=== PATIENT | male | born 1935 | race Caucasian/White ===

== ENCOUNTER 2021-08-21 12:16 | Emergency (ER) | payer MEDICARE, OTHER ==
--- NOTE | 2021-08-21 12:20 | ED Fall/Injury ---
General Stated Complaint: FALL History of Present Illness Date Seen by Provider: Aug 21, 2021 Time Seen by Provider: 12:20 Initial Comments 85-year-old male presents following a fall. Patient fell last night in the bathtub. He is not sure if he blacked out. Patient presents today because he "has a headache" and is maybe little bit more weak than normal. 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 Patient took some "aspirin this morning" for the headache he denies any nausea, vomiting or focal deficit. Allergies and Home Medications Allergies Coded Allergies: No Known Drug Allergies (Unverified , 08/21/21) Patient Home Medication List Home Medication List Reviewed: Yes Review of Systems Review of Systems Constitutional: see HPI Eyes: No Symptoms Reported Ears, Nose, Mouth, Throat: no symptoms reported Respiratory: no symptoms reported Cardiovascular: no symptoms reported Genitourinary: no symptoms reported Musculoskeletal: no symptoms reported Skin: no symptoms reported Psychiatric/Neurological: Headache Physical Exam Vital Signs Vital Signs - First Documented 08/21/21 12:16 Temp 36.4 Pulse 78 Resp 18 B/P (MAP) 180/85 (116) Pulse Ox 95 O2 Delivery Room Air Capillary Refill : Height, Weight, BMI Height: '" Weight: lbs. oz. kg; BMI Method: General Appearance: WD/WN, no apparent distress Neck: full range of motion, supple Cardiovascular: normal peripheral pulses Respiratory: chest non-tender, lungs clear Gastrointestinal: non tender, soft Extremities: normal capillary refill Neurologic/Psychiatric: alert, normal mood/affect, oriented x 3 Skin: normal color, warm/dry Progress/Results/Core Measures Results/Orders Lab Results Laboratory Tests Test 08/21/21 12:24 Range/Units White Blood Count 8.7 4.3-11.0 10^3/uL Red Blood Count 3.97 L 4.30-5.52 10^6/uL Hemoglobin 12.1 L 13.3-17.7 g/dL Hematocrit 36 L 40-54 % Mean Corpuscular Volume 91 80-99 fL Mean Corpuscular Hemoglobin 31 25-34 pg Mean Corpuscular Hemoglobin Concent 34 32-36 g/dL Red Cell Distribution Width 13.8 10.0-14.5 % Platelet Count 218 130-400 10^3/uL Mean Platelet Volume 8.4 L 9.0-12.2 fL Immature Granulocyte % (Auto) 0 % Neutrophils (%) (Auto) 77 H 42-75 % Lymphocytes (%) (Auto) 13 12-44 % Monocytes (%) (Auto) 8 0-12 % Eosinophils (%) (Auto) 2 0-10 % Basophils (%) (Auto) 1 0-10 % Neutrophils # (Auto) 6.7 1.8-7.8 10^3/uL Lymphocytes # (Auto) 1.1 1.0-4.0 10^3/uL Monocytes # (Auto) 0.7 0.0-1.0 10^3/uL Eosinophils # (Auto) 0.2 0.0-0.3 10^3/uL Basophils # (Auto) 0.0 0.0-0.1 10^3/uL Immature Granulocyte # (Auto) 0.0 0.0-0.1 10^3/uL Sodium Level 142 135-145 MMOL/L Potassium Level 3.7 3.6-5.0 MMOL/L Chloride Level 108 H 98-107 MMOL/L Carbon Dioxide Level 23 21-32 MMOL/L Anion Gap 11 5-14 MMOL/L Blood Urea Nitrogen 10 7-18 MG/DL Creatinine 1.26 0.60-1.30 MG/DL Estimat Glomerular Filtration Rate 56 BUN/Creatinine Ratio 8 Glucose Level 90 70-105 MG/DL Calcium Level 8.7 8.5-10.1 MG/DL Corrected Calcium 8.5 8.5-10.1 MG/DL Total Bilirubin 0.6 0.1-1.0 MG/DL Aspartate Amino Transf (AST/SGOT) 19 5-34 U/L Alanine Aminotransferase (ALT/SGPT) < 5 0-55 U/L Alkaline Phosphatase 106 40-136 U/L Total Protein 7.2 6.4-8.2 GM/DL Albumin 4.2 3.2-4.5 GM/DL My Orders Orders - CHARU BELLVOR L DO Ct Head/Cervical Spine Wo (08/21/21 12:20) Cbc With Automated Diff (08/21/21 12:20) Comprehensive Metabolic Panel (08/21/21 12:20) Ua Culture If Indicated (08/21/21 12:20) Ekg Tracing (08/21/21 12:20) Monitor-Rhythm Ecg Trace Only (08/21/21 12:20) Chest 1 View Ap/Pa Only (08/21/21 12:20) Ketorolac Injection (Toradol Injection) (08/21/21 13:17) Vital Signs/I&O 08/21/21 08/21/21 12:16 14:21 Temp 36.4 36.4 Pulse 78 75 Resp 18 18 B/P (MAP) 180/85 (116) 175/79 Pulse Ox 95 96 O2 Delivery Room Air Room Air Progress Progress Note : Progress Note Patient with negative CT head and cervical spine. I suspect he passed a little bit of a mild concussion. Patient's lab do not show any acute findings. Patient with negative EKG. Patient will get some Toradol IV here in the ER. He can use Tylenol or ibuprofen as needed for pain at home. Patient stable and discharged home Initial ECG Impression Date: Aug 21, 2021 Initial ECG Impression Time: 12:54 Initial ECG Rate: 73 Initial ECG Rhythm: Normal Sinus Initial ECG Intervals: Normal Initial ECG Impression: Normal Diagnostic Imaging Diagonstic Imaging: CT Plain Films/CT/US/NM/MRI: head Comments Date of Exam:08/21/21 CT HEAD/CERVICAL SPINE WO PROCEDURE: CT head and CT cervical spine without contrast. TECHNIQUE: Multiple contiguous axial images were obtained through the brain and cervical spine without the use of intravenous contrast. Sagittal and coronal reformations through the cervical spine were then performed. Auto Exposure Controls were utilized during the CT exam to meet ALARA standards for radiation dose reduction. INDICATION: Fall, syncope, head and neck injury. COMPARISON: None. FINDINGS: CT HEAD: The ventricles and cortical sulci are prominent, but appear congruent and likely due to generalized parenchymal volume loss. There is no midline shift or mass effect. No acute intracranial hemorrhage is seen. There is no CT evidence of acute territorial ischemia. The calvarium appears intact. Visualized paranasal sinuses are clear. There is a prominent right kitty bullosa. CERVICAL SPINE: Alignment of the cervical spine demonstrates minimal anterolisthesis at C4-C5. There is bony bridging across C3-C4. There is severe degenerative change at C5-C6 and C6-C7. There is facet arthropathy in the upper cervical spine bilaterally. Vertebral body heights are generally preserved. No acute fracture is seen. No bony fragments or hyperdense fluid collections are seen in the spinal canal. Soft tissues about the cervical spine demonstrate no acute abnormality. IMPRESSION: 1. No acute intracranial hemorrhage or calvarium fracture. 2. Degenerative changes in the cervical spine with no acute fracture seen. Diagonstic Imaging: Xray Plain Films/CT/US/NM/MRI: chest Comments CHEST 1 VIEW AP/PA ONLY HISTORY: Fall, syncope TECHNIQUE: Frontal view of the chest COMPARISON: None FINDINGS: There is abnormal opacity at the right lung base. There is a small right pleural effusion with right basilar airspace opacity. The left lung is clear. The heart is upper normal in size. There is no pneumothorax. There is no pneumothorax. IMPRESSION: 1. Small right pleural effusion with associated airspace opacity. Reviewed: Reviewed Night [facility] Study Departure Impression Primary Impression: Fall Qualified Codes: W19.XXXA - Unspecified fall, initial encounter Additional Impression: Minor head injury Qualified Codes: S09.90XA - Unspecified injury of head, initial encounter Disposition: 01 HOME, SELF-CARE Condition: Stable Departure-Patient Inst. Patient Instructions: Concussion, Adult (DC), Minor Head Injury (DC) Add. Discharge Instructions: Tylenol or ibuprofen as needed for pain Follow-up with your primary care provider next week if symptoms are not improving SAIDA BELL DO Aug 21, 2021 12:20
[2021-08-21 12:25] LABS: BASOPHILS % (AUTO) 1 % (0-10); EOSINOPHILS # (AUTO) 0.2 10^3/uL (0.0-0.3); EOSINOPHILS % (AUTO) 2 % (0-10); HEMATOCRIT 36 % (40-54); HEMOGLOBIN 12.1 g/dL (13.3-17.7); LYMPHOCYTES # (AUTO) 1.1 10^3/uL (1.0-4.0); LYMPHOCYTES % (AUTO) 13 % (12-44); MEAN CORPUSCULAR HEMOGLOBIN 31 pg (25-34); MEAN CORPUSCULAR HGB CONC 34 g/dL (32-36); MEAN CORPUSCULAR VOLUME 91 fL (80-99); MEAN PLATELET VOLUME 8.4 fL (9.0-12.2); MONOCYTES # (AUTO) 0.7 10^3/uL (0.0-1.0); MONOCYTES % (AUTO) 8 % (0-12); NEUTROPHILS # (AUTO) 6.7 10^3/uL (1.8-7.8); NEUTROPHILS % (AUTO) 77 % (42-75); PLATELET COUNT 218 10^3/uL (130-400); WHITE BLOOD COUNT 8.7 10^3/uL (4.3-11.0)
[2021-08-21 12:44] LABS: ALANINE AMINOTRANSFERASE < 5 U/L (0-55); ALKALINE PHOSPHATASE 106 U/L (40-136); BILIRUBIN,TOTAL 0.6 MG/DL (0.1-1.0); BUN/CREATININE RATIO 8; CALCIUM 8.7 MG/DL (8.5-10.1); CARBON DIOXIDE 23 MMOL/L (21-32); CHLORIDE 108 MMOL/L (98-107); CREATININE SERUM 1.26 MG/DL (0.60-1.30); GFR ESTIMATED 56; GLUCOSE 90 MG/DL (70-105); POTASSIUM 3.7 MMOL/L (3.6-5.0); SODIUM 142 MMOL/L (135-145)
[2021-08-21 12:45] LABS: ALBUMIN 4.2 GM/DL (3.2-4.5); TOTAL PROTEIN 7.2 GM/DL (6.4-8.2)
--- NOTE | 2021-08-21 12:57 | Diagnostic Imaging Report ---
PROCEDURE: CT head and CT cervical spine without contrast. TECHNIQUE: Multiple contiguous axial images were obtained through the brain and cervical spine without the use of intravenous contrast. Sagittal and coronal reformations through the cervical spine were then performed. Auto Exposure Controls were utilized during the CT exam to meet ALARA standards for radiation dose reduction. INDICATION: Fall, syncope, head and neck injury. COMPARISON: None. FINDINGS: CT HEAD: The ventricles and cortical sulci are prominent, but appear congruent and likely due to generalized parenchymal volume loss. There is no midline shift or mass effect. No acute intracranial hemorrhage is seen. There is no CT evidence of acute territorial ischemia. The calvarium appears intact. Visualized paranasal sinuses are clear. There is a prominent right kitty bullosa. CERVICAL SPINE: Alignment of the cervical spine demonstrates minimal anterolisthesis at C4-C5. There is bony bridging across C3-C4. There is severe degenerative change at C5-C6 and C6-C7. There is facet arthropathy in the upper cervical spine bilaterally. Vertebral body heights are generally preserved. No acute fracture is seen. No bony fragments or hyperdense fluid collections are seen in the spinal canal. Soft tissues about the cervical spine demonstrate no acute abnormality. IMPRESSION: 1. No acute intracranial hemorrhage or calvarium fracture. 2. Degenerative changes in the cervical spine with no acute fracture seen. Dictated by: Dictated on workstation # [id number]
--- NOTE | 2021-08-21 12:57 | Diagnostic Imaging Report ---
HISTORY: Fall, syncope TECHNIQUE: Frontal view of the chest COMPARISON: None FINDINGS: There is abnormal opacity at the right lung base. There is a small right pleural effusion with right basilar airspace opacity. The left lung is clear. The heart is upper normal in size. There is no pneumothorax. There is no pneumothorax. IMPRESSION: 1. Small right pleural effusion with associated airspace opacity. Dictated by: Dictated on workstation # [id number]
[2021-08-21] MEDS ORDERED: KETOROLAC 30 MG/ML VIAL IVP STA (13:17)
[2021-08-21 14:21] VITALS: BP 175/79
== END 2021-08-21 14:18 | disposition home or self-care (01) ==
LOC: ER FS 12:18
DX: S09.90XA Unspecified injury of head, initial encounter (principal); Z86.73 Personal history of transient ischemic attack (TIA), and cerebral infarction without residual deficits; Z79.82 Long term (current) use of aspirin; W18.2XXA Fall in (into) shower or empty bathtub, initial encounter
CPT/HCPCS: 36415; 70450; 71045; 72125; 80053; 85025; 93005; 93041

== ENCOUNTER 2021-12-03 19:02 | Emergency (ER) | payer MEDICARE ==
--- NOTE | 2021-12-03 19:06 | ED General ---
General Stated Complaint: CP History of Present Illness Date Seen by Provider: Dec 03, 2021 Time Seen by Provider: 19:01 Initial Comments 86-year-old male with PMH of Alzheimer's dementia/Parkinson's, is sent here via EMS from [facility] with c/o brief intermittent chest pain which occurred in the morning. As per paper report, staff concerned since pt told them he will not make it through the weekend. EMS reports no chest pain at time on scene. In ER pt denies any chest pain, and states it lasted only a few seconds and went away. Denies fever, cough, SOB,palpations, diarrhea, dysuria, headache. Allergies and Home Medications Allergies Coded Allergies: No Known Drug Allergies (Unverified , 08/21/21) Patient Home Medication List Home Medication List Reviewed: Yes Review of Systems Review of Systems Constitutional: no symptoms reported EENTM: no symptoms reported Respiratory: no symptoms reported Cardiovascular: chest pain Gastrointestinal: no symptoms reported Genitourinary: no symptoms reported Musculoskeletal: no symptoms reported Skin: no symptoms reported Psychiatric/Neurological: No Symptoms Reported Hematologic/Lymphatic: No Symptoms Reported Immunological/Allergic: no symptoms reported Past Gzhccra-Lfeaby-Gtweij Hx Immunizations Up To Date First/Initial COVID19 Vaccinat: Unknown Past Medical History Surgery/Hospitalization HX: Parkinson's, BPH, Dementia, HTN, CVA Physical Exam Vital Signs Vital Signs - First Documented 12/03/21 19:02 Temp 36.9 Pulse 88 Resp 18 B/P (MAP) 154/79 (104) Pulse Ox 94 O2 Delivery Room Air Capillary Refill : Height, Weight, BMI Height: '" Weight: lbs. oz. kg; BMI Method: General Appearance: No Apparent Distress, Obese HEENT: PERRL/EOMI, Pharynx Normal Neck: Full Range of Motion, Normal Inspection, Non Tender, Supple Respiratory: Chest Non Tender, Lungs Clear, Normal Breath Sounds Cardiovascular: Regular Rate, Rhythm, No Edema Gastrointestinal: Normal Bowel Sounds, Non Tender, Soft Back: Normal Inspection, No CVA Tenderness, No Vertebral Tenderness Neurologic/Psychiatric: Alert, Oriented x3, Normal Mood/Affect Skin: Normal Color Progress/Results/Core Measures Suspected Sepsis SIRS Temperature: Pulse: Respiratory Rate: Laboratory Tests 12/03/21 19:06: White Blood Count 9.2 Blood Pressure / Mean: Laboratory Tests 12/03/21 19:06: Creatinine 1.31H, INR Comment 1.0, Platelet Count 336, Total Bilirubin 0.3 Results/Orders Lab Results Laboratory Tests Test 12/03/21 19:06 12/03/21 20:56 Range/Units White Blood Count 9.2 4.3-11.0 10^3/uL Red Blood Count 4.22 L 4.30-5.52 10^6/uL Hemoglobin 12.6 L 13.3-17.7 g/dL Hematocrit 38 L 40-54 % Mean Corpuscular Volume 90 80-99 fL Mean Corpuscular Hemoglobin 30 25-34 pg Mean Corpuscular Hemoglobin Concent 33 32-36 g/dL Red Cell Distribution Width 14.2 10.0-14.5 % Platelet Count 336 130-400 10^3/uL Mean Platelet Volume 8.3 L 9.0-12.2 fL Immature Granulocyte % (Auto) 0 % Neutrophils (%) (Auto) 75 42-75 % Lymphocytes (%) (Auto) 16 12-44 % Monocytes (%) (Auto) 5 0-12 % Eosinophils (%) (Auto) 3 0-10 % Basophils (%) (Auto) 1 0-10 % Neutrophils # (Auto) 6.9 1.8-7.8 10^3/uL Lymphocytes # (Auto) 1.5 1.0-4.0 10^3/uL Monocytes # (Auto) 0.5 0.0-1.0 10^3/uL Eosinophils # (Auto) 0.3 0.0-0.3 10^3/uL Basophils # (Auto) 0.1 0.0-0.1 10^3/uL Immature Granulocyte # (Auto) 0.0 0.0-0.1 10^3/uL Prothrombin Time 13.5 12.2-14.7 SEC INR Comment 1.0 0.8-1.4 Activated Partial Thromboplast Time 28 24-35 SEC D-Dimer 1.11 H 0.00-0.49 UG/ML Sodium Level 140 135-145 MMOL/L Potassium Level 4.2 3.6-5.0 MMOL/L Chloride Level 103 98-107 MMOL/L Carbon Dioxide Level 23 21-32 MMOL/L Anion Gap 14 5-14 MMOL/L Blood Urea Nitrogen 16 7-18 MG/DL Creatinine 1.31 H 0.60-1.30 MG/DL Estimat Glomerular Filtration Rate 53 BUN/Creatinine Ratio 12 Glucose Level 102 70-105 MG/DL Calcium Level 9.0 8.5-10.1 MG/DL Corrected Calcium 8.9 8.5-10.1 MG/DL Magnesium Level 2.1 1.6-2.4 MG/DL Total Bilirubin 0.3 0.1-1.0 MG/DL Aspartate Amino Transf (AST/SGOT) 15 5-34 U/L Alanine Aminotransferase (ALT/SGPT) 6 0-55 U/L Alkaline Phosphatase 118 40-136 U/L Troponin I < 0.30 <0.30 NG/ML Pro-B-Type Natriuretic Peptide 56.3 <75.0 PG/ML Total Protein 7.7 6.4-8.2 GM/DL Albumin 4.1 3.2-4.5 GM/DL Lipase 35 8-78 U/L Urine Color YELLOW Urine Clarity CLEAR Urine pH 6.0 5-9 Urine Specific [place] 1.010 L 1.016-1.022 Urine Protein NEGATIVE NEGATIVE Urine Glucose (UA) NEGATIVE NEGATIVE Urine Ketones NEGATIVE NEGATIVE Urine Nitrite NEGATIVE NEGATIVE Urine Bilirubin NEGATIVE NEGATIVE Urine Urobilinogen 0.2 < = 1.0 MG/DL Urine Leukocyte Esterase NEGATIVE NEGATIVE Urine RBC (Auto) NEGATIVE NEGATIVE Urine RBC 2-5 H /HPF Urine WBC NONE /HPF Urine Squamous Epithelial Cells 2-5 /HPF Urine Crystals NONE /LPF Urine Bacteria NEGATIVE /HPF Urine Casts NONE /LPF Urine Mucus NEGATIVE /LPF Urine Culture Indicated NO My Orders Orders - JANIA MENDOSA MD Cbc With Automated Diff (12/03/21 19:07) Magnesium (12/03/21 19:07) Chest 1 View Ap/Pa Only (12/03/21 19:07) Ekg Tracing (12/03/21 19:07) Comprehensive Metabolic Panel (12/03/21 19:07) Protime With Inr (12/03/21 19:07) Partial Thromboplastin Time (12/03/21 19:07) O2 (12/03/21 19:07) Monitor-Rhythm Ecg Trace Only (12/03/21 19:07) Aspirin Chewable Tablet (Baby Aspirin Ch (12/03/21 19:15) Ed Iv/Invasive Line Start (12/03/21 19:07) Lipase (12/03/21 19:07) Fibrin Degradation Products (12/03/21 19:07) Troponin I Fs (12/03/21 19:07) Probnp Fs (12/03/21 19:07) Ua Culture If Indicated (12/03/21 19:07) Aspirin Chewable Tablet (Baby Aspirin Ch (12/03/21 19:30) Ct Angio Chest W (12/03/21 19:52) Iohexol Injection (Omnipaque 350 Mg/Ml 1 (12/03/21 20:00) Received Contrast (Hold Metformin- Contr (12/03/21 20:00) Ns (Ivpb) (Sodium Chloride 0.9% Ivpb Bag (12/03/21 20:00) Straight Cath (Urinary) (12/03/21 20:48) Medications Given in ED Current Medications Medications Dose Ordered Sig/Kami Route Start Time Stop Time Status Last Admin Dose Admin Aspirin 243 mg ONCE ONCE PO 12/03/21 19:30 12/03/21 19:31 DC 12/03/21 19:29 243 MG Iohexol 125 ml ONCE ONCE IV 12/03/21 20:00 12/03/21 20:01 DC 12/03/21 20:12 125 ML Sodium Chloride 100 ml ONCE ONCE IV 12/03/21 20:00 12/03/21 20:01 DC 12/03/21 20:12 100 ML Vital Signs/I&O 12/03/21 19:02 Temp 36.9 Pulse 88 Resp 18 B/P (MAP) 154/79 (104) Pulse Ox 94 O2 Delivery Room Air Capillary Refill : Progress Note : Progress Note 1. ACS RULE OUT: - CXR: unremarkable - EKG/ Troponin: non-ischemic - UA normal - Labs unremarkable - ASA 243mg STAT; pt took one baby ASA earlier today - No pain in the ER - Follow up with PCP and cardiology within 5to 7 days -The patient was seen in the ED, and treated appropriately to presentation at a specific point in time. Patient is informed that there is a possibility that disease and illness can evolve and change in acuity rapidly or slowly after patient is discharged from the ER. Precautionary advice given to the patient for immediate return to ER if symptoms worsen or do not resolve, and to seek emergency care sooner rather than later. Pt also advised on the importance of PCP follow up and compliance with management and follow up plan with PCP and/or specialist, as this is part of the management plan. Pt verbally expressed understanding. 2. ELEVATED D-DIMER: - D-dimer is 1.11 - CTA CHEST: no PE, shows gallstones, but it is small and likely chronic and pt denies RUQ pain. Diagnostic Imaging Diagonstic Imaging: Xray, CT Plain Films/CT/US/NM/MRI: chest Comments [facility] [place], [place] NAME: MANUEL CALERO [facility] REC#: [id number] PT STATUS: REG ER : 1935 PHYSICIAN: JANIA MENDOSA MD ADMIT DATE: 12/03/21/ER FS Signed Date of Exam:12/03/21 CT ANGIO CHEST W PROCEDURE: CT angiography of the chest with contrast. TECHNIQUE: Multiple contiguous axial images were obtained through the chest after uneventful bolus administration of intravenous contrast. 3D reconstructed CTA MIP acquisitions were also performed. Auto Exposure Controls were utilized during the CT exam to meet ALARA standards for radiation dose reduction. INDICATION: Elevated D-dimer, chest pain. Lungs are clear. There is mild aortic atherosclerosis but no aneurysm or dissection. There are no pulmonary emboli. There is coronary atherosclerosis. There are no effusions or pneumothoraces. There is no hilar or mediastinal lymphadenopathy. There are some small calculi in the gallbladder. IMPRESSION: Cholecystolithiasis. No acute abnormality is seen in the chest. Dictated by: Dictated on workstation # [id number] Dict: 12/03/[id number] Trans: 12/03/212103 [facility] [id number] Interpreted by: DOMINIC LUNDY MD Electronically signed by: DOMINIC LUNDY MD 12/03/212103 [facility] [place], [place] NAME: MANUEL CALERO [facility] REC#: [id number] PT STATUS: REG ER : 1935 PHYSICIAN: JANIA MENDOSA MD ADMIT DATE: 12/03/21/ER FS Signed Date of Exam:12/03/21 CHEST 1 VIEW AP/PA ONLY INDICATION: Chest pain. EXAMINATION: Portable chest at 7:17 PM. Heart size and pulmonary vascularity are normal. Lungs are clear. There are no effusions or pneumothoraces. IMPRESSION: No acute abnormalities in the chest. Dictated by: Dictated on workstation # [id number] Dict: 12/03/211922 Trans: 12/03/211935 PJE [id number] Interpreted by: DOMINIC LUNDY MD Electronically signed by: DOMINIC LUNDY MD 12/03/211935 Departure Impression Primary Impression: Ruled out for myocardial infarction Disposition: HOME, SELF-CARE Condition: Improved Departure-Patient Inst. Referrals: RORY SMITH MD (PCP/Family) Primary Care Physician Patient Instructions: Heart Healthy Diet, Chest Pain (DC), Pleuritic Chest Pain (DC) Add. Discharge Instructions: - Follow up with PCP and cardiology within 5 to 7 days - Return to ER if chest pain resumes JANIA MENDOSA MD Dec 03, 2021 19:06
[2021-12-03 19:12] LABS: BASOPHILS # (AUTO) 0.1 10^3/uL (0.0-0.1); BASOPHILS % (AUTO) 1 % (0-10); EOSINOPHILS # (AUTO) 0.3 10^3/uL (0.0-0.3); EOSINOPHILS % (AUTO) 3 % (0-10); HEMATOCRIT 38 % (40-54); HEMOGLOBIN 12.6 g/dL (13.3-17.7); LYMPHOCYTES # (AUTO) 1.5 10^3/uL (1.0-4.0); LYMPHOCYTES % (AUTO) 16 % (12-44); MEAN CORPUSCULAR HEMOGLOBIN 30 pg (25-34); MEAN CORPUSCULAR HGB CONC 33 g/dL (32-36); MEAN CORPUSCULAR VOLUME 90 fL (80-99); MEAN PLATELET VOLUME 8.3 fL (9.0-12.2); MONOCYTES # (AUTO) 0.5 10^3/uL (0.0-1.0); MONOCYTES % (AUTO) 5 % (0-12); NEUTROPHILS # (AUTO) 6.9 10^3/uL (1.8-7.8); NEUTROPHILS % (AUTO) 75 % (42-75); PLATELET COUNT 336 10^3/uL (130-400); WHITE BLOOD COUNT 9.2 10^3/uL (4.3-11.0)
[2021-12-03] MEDS ORDERED: ASPIRIN 81 MG CHEW (CHILDREN'S ASA) PO ONE ×2 (19:15→19:30)
[2021-12-03 19:18] LABS: PROTHROMBIN TIME PATIENT 13.5 SEC (12.2-14.7)
--- NOTE | 2021-12-03 19:26 | Diagnostic Imaging Report ---
INDICATION: Chest pain. EXAMINATION: Portable chest at 7:17 PM. Heart size and pulmonary vascularity are normal. Lungs are clear. There are no effusions or pneumothoraces. IMPRESSION: No acute abnormalities in the chest. Dictated by: Dictated on workstation # [id number]
[2021-12-03 19:29] LABS: POTASSIUM 4.2 MMOL/L (3.6-5.0)
[2021-12-03 19:30] LABS: ALBUMIN 4.1 GM/DL (3.2-4.5); BILIRUBIN,TOTAL 0.3 MG/DL (0.1-1.0); CREATININE SERUM 1.31 MG/DL (0.60-1.30); MAGNESIUM 2.1 MG/DL (1.6-2.4); TOTAL PROTEIN 7.7 GM/DL (6.4-8.2)
[2021-12-03] MEDS ORDERED: NS 100 ML (IVPB) BAG IV ONE (20:00)
[2021-12-03] MEDS ORDERED: HOLD METFORMIN - RECEIVED CONTRAST 20 ML VIAL IV SCH (20:00)
[2021-12-03] MEDS ORDERED: IOHEXOL 350 MG/ML 150 ML (OMNIPAQUE 350) VIAL IV ONE (20:00)
--- NOTE | 2021-12-03 20:48 | Diagnostic Imaging Report ---
PROCEDURE: CT angiography of the chest with contrast. TECHNIQUE: Multiple contiguous axial images were obtained through the chest after uneventful bolus administration of intravenous contrast. 3D reconstructed CTA MIP acquisitions were also performed. Auto Exposure Controls were utilized during the CT exam to meet ALARA standards for radiation dose reduction. INDICATION: Elevated D-dimer, chest pain. Lungs are clear. There is mild aortic atherosclerosis but no aneurysm or dissection. There are no pulmonary emboli. There is coronary atherosclerosis. There are no effusions or pneumothoraces. There is no hilar or mediastinal lymphadenopathy. There are some small calculi in the gallbladder. IMPRESSION: Cholecystolithiasis. No acute abnormality is seen in the chest. Dictated by: Dictated on workstation # [id number]
[2021-12-03 20:58] LABS: BILIRUBIN,URINE NEGATIVE (NEGATIVE); CLARITY,URINE CLEAR; COLOR,URINE YELLOW; GLUCOSE, URINE (UA) NEGATIVE (NEGATIVE); KETONES,URINE NEGATIVE (NEGATIVE); LEUKOCYTE ESTERASE ,URINE NEGATIVE (NEGATIVE); NITRITE,URINE NEGATIVE (NEGATIVE); PROTEIN,URINE NEGATIVE (NEGATIVE)
[2021-12-03 21:01] LABS: BACTERIA,URINE NEGATIVE /HPF
[2021-12-03 21:21] VITALS: BP 111/86
== END 2021-12-03 22:05 | disposition home or self-care (01) ==
LOC: EDUNIT# 19:02 → ER FS 19:03
DX: R07.9 Chest pain, unspecified (principal)
CPT/HCPCS: 36415; 51701; 71045; 71275; 80053; 81000; 83690; 83735; 83880; 84484; 85025; 85379; 85610; 85730; 93005; 93041; Q9967

== ENCOUNTER → 2022-08-24 | Outpatient (CLI) | payer MEDICARE, MEDICAID ==
[2022-08-24 10:42] LABS: HEMATOCRIT 38 % (40-54); HEMOGLOBIN 12.4 g/dL (13.3-17.7); MEAN CORPUSCULAR HEMOGLOBIN 30 pg (25-34); MEAN CORPUSCULAR HGB CONC 33 g/dL (32-36); MEAN CORPUSCULAR VOLUME 92 fL (80-99); MEAN PLATELET VOLUME 8.7 fL (9.0-12.2); PLATELET COUNT 234 10^3/uL (130-400); WHITE BLOOD COUNT 8.6 10^3/uL (4.3-11.0)
[2022-08-24 11:12] LABS: BILIRUBIN,TOTAL 0.7 MG/DL (0.1-1.0); CALCIUM 8.7 MG/DL (8.5-10.1); CREATININE SERUM 1.37 MG/DL (0.60-1.30); POTASSIUM 3.4 MMOL/L (3.6-5.0); TOTAL PROTEIN 7.3 GM/DL (6.4-8.2)
== END ==
PROVIDERS: ATTEND Family Medicine
DX: J18.8 Other pneumonia, unspecified organism (principal)
CPT/HCPCS: 80053; 85027

== ENCOUNTER → 2022-08-30 | Outpatient (CLI) | payer MEDICARE, MEDICAID ==
[2022-08-30 11:14] LABS: HEMOGLOBIN 12.7 g/dL (13.3-17.7); MEAN PLATELET VOLUME 8.8 fL (9.0-12.2); WHITE BLOOD COUNT 8.9 10^3/uL (4.3-11.0)
[2022-08-30 12:04] LABS: BILIRUBIN,TOTAL 0.5 MG/DL (0.1-1.0); CALCIUM 8.8 MG/DL (8.5-10.1); CREATININE SERUM 1.34 MG/DL (0.60-1.30); TOTAL PROTEIN 7.1 GM/DL (6.4-8.2)
== END ==
LOC: LAB FS 10:42
PROVIDERS: ATTEND Family Medicine
DX: I10 Essential (primary) hypertension (principal)
CPT/HCPCS: 36415; 80053; 83880; 85027

== ENCOUNTER → 2022-09-26 | Outpatient (CLI) | payer MEDICARE, MEDICAID ==
[2022-09-26 17:37] LABS: HEMATOCRIT 37 % (40-54); HEMOGLOBIN 12.1 g/dL (13.3-17.7); MEAN CORPUSCULAR HEMOGLOBIN 31 pg (25-34); MEAN CORPUSCULAR HGB CONC 33 g/dL (32-36); MEAN CORPUSCULAR VOLUME 93 fL (80-99); MEAN PLATELET VOLUME 8.9 fL (9.0-12.2); PLATELET COUNT 279 10^3/uL (130-400); WHITE BLOOD COUNT 7.2 10^3/uL (4.3-11.0)
[2022-09-26 18:02] LABS: ALBUMIN 3.9 GM/DL (3.2-4.5); BILIRUBIN,TOTAL 0.4 MG/DL (0.1-1.0); CALCIUM 8.7 MG/DL (8.5-10.1); CREATININE SERUM 1.28 MG/DL (0.60-1.30); POTASSIUM 3.7 MMOL/L (3.6-5.0); TOTAL PROTEIN 6.9 GM/DL (6.4-8.2)
== END ==
LOC: LAB FS 17:27
PROVIDERS: ATTEND Family Medicine
DX: M62.81 Muscle weakness (generalized) (principal); J18.8 Other pneumonia, unspecified organism
CPT/HCPCS: 36415; 80053; 85027

== ENCOUNTER 2023-01-08 18:38 | Emergency (ER) | payer MEDICARE, MEDICAID ==
--- NOTE | 2023-01-08 18:46 | ED General ---
General Stated Complaint: CP/SOB History of Present Illness Date Seen by Provider: Jan 08, 2023 Time Seen by Provider: 18:44 Initial Comments 87-year-old male with PMH of COPD/CKD 3/HTN/APRIL/Alzheimer's/Parkinson's, is brought in by EMS from [facility] with complaints of shortness of breath and 1 episode of chest pain at 9 AM today morning, which has resolved. Patient's nephew was visiting with patient at medical lunch and advised them to send him to the ER because he had a second episode of chest pain while his nephew was there as well which also resolved. In the ER patient denies chest pain. Patient has been having shortness of breath which began yesterday and gradually worsened, and is aggravated by moving around. In the ER patient is satting in 93 to 95% on room air. Denies active chest pain, cough, fever, lethargy, diarrhea, nausea and vomiting. Allergies and Home Medications Allergies Coded Allergies: No Known Drug Allergies (Unverified , 08/21/21) Patient Home Medication List Home Medication List Reviewed: Yes Review of Systems Review of Systems Constitutional: no symptoms reported EENTM: no symptoms reported Respiratory: see HPI, short of breath Cardiovascular: see HPI, chest pain Gastrointestinal: no symptoms reported Genitourinary: no symptoms reported Musculoskeletal: no symptoms reported Skin: no symptoms reported Psychiatric/Neurological: No Symptoms Reported Hematologic/Lymphatic: No Symptoms Reported Immunological/Allergic: no symptoms reported Past Huqwsgi-Idlfhk-Kopwqp Hx Immunizations Up To Date First/Initial COVID19 Vaccinat: Unknown Past Medical History Surgery/Hospitalization HX: Parkinson's, BPH, Dementia, HTN, CVA Physical Exam Vital Signs Vital Signs - First Documented 01/08/23 18:42 Temp 36.1 Pulse 97 Resp 17 B/P (MAP) 134/94 (107) Pulse Ox 95 O2 Delivery Room Air Capillary Refill : Height, Weight, BMI Height: '" Weight: lbs. oz. kg; BMI Method: General Appearance: No Apparent Distress, WD/WN HEENT: PERRL/EOMI, Normal ENT Inspection Neck: Full Range of Motion Respiratory: Chest Non Tender, No Accessory Muscle Use, No Respiratory Distress, Wheezing (Expiratory mild, occasional) Cardiovascular: Regular Rate, Rhythm, Other (Bilateral mild pitting edema 1+) Gastrointestinal: Normal Bowel Sounds, No Organomegaly, Non Tender, Soft Back: No CVA Tenderness Extremity: Normal Range of Motion Neurologic/Psychiatric: Alert, Oriented x3, No Motor/Sensory Deficits, Normal Mood/Affect Skin: Normal Color Focused Exam Lactate Level 01/08/23 18:41: Lactic Acid Level 2.62*H Lactic Acid Level Laboratory Tests Test 01/08/23 18:41 Lactic Acid Level 2.62 MMOL/L (0.50-2.00) *H Progress/Results/Core Measures Suspected Sepsis SIRS Temperature: Pulse: Respiratory Rate: Laboratory Tests 01/08/23 18:41: White Blood Count 5.8 Blood Pressure / Mean: 01/08/23 18:41: Lactic Acid Level 2.62*H Laboratory Tests 01/08/23 18:41: Creatinine 1.32H, INR Comment 0.9, Platelet Count 179, Total Bilirubin 0.3 Results/Orders Lab Results Laboratory Tests Test 01/08/23 18:41 01/08/23 20:25 Range/Units White Blood Count 5.8 4.3-11.0 10^3/uL Red Blood Count 4.14 L 4.30-5.52 10^6/uL Hemoglobin 12.4 L 13.3-17.7 g/dL Hematocrit 41 40-54 % Mean Corpuscular Volume 98 80-99 fL Mean Corpuscular Hemoglobin 30 25-34 pg Mean Corpuscular Hemoglobin Concent 31 L 32-36 g/dL Red Cell Distribution Width 15.4 H 10.0-14.5 % Platelet Count 179 130-400 10^3/uL Mean Platelet Volume 8.6 L 9.0-12.2 fL Immature Granulocyte % (Auto) 0 % Neutrophils (%) (Auto) 60 42-75 % Lymphocytes (%) (Auto) 25 12-44 % Monocytes (%) (Auto) 8 0-12 % Eosinophils (%) (Auto) 7 0-10 % Basophils (%) (Auto) 1 0-10 % Neutrophils # (Auto) 3.4 1.8-7.8 10^3/uL Lymphocytes # (Auto) 1.5 1.0-4.0 10^3/uL Monocytes # (Auto) 0.4 0.0-1.0 10^3/uL Eosinophils # (Auto) 0.4 H 0.0-0.3 10^3/uL Basophils # (Auto) 0.0 0.0-0.1 10^3/uL Immature Granulocyte # (Auto) 0.0 0.0-0.1 10^3/uL Prothrombin Time 12.6 12.2-14.7 SEC INR Comment 0.9 0.8-1.4 Activated Partial Thromboplast Time 28 24-35 SEC Sodium Level 138 135-145 MMOL/L Potassium Level 3.6 3.6-5.0 MMOL/L Chloride Level 103 98-107 MMOL/L Carbon Dioxide Level 23 21-32 MMOL/L Anion Gap 12 5-14 MMOL/L Blood Urea Nitrogen 13 7-18 MG/DL Creatinine 1.32 H 0.60-1.30 MG/DL Estimat Glomerular Filtration Rate 52 BUN/Creatinine Ratio 10 Glucose Level 115 H 70-105 MG/DL Lactic Acid Level 2.62 *H 0.50-2.00 MMOL/L Calcium Level 8.9 8.5-10.1 MG/DL Corrected Calcium 9.1 8.5-10.1 MG/DL Magnesium Level 2.1 1.6-2.4 MG/DL Total Bilirubin 0.3 0.1-1.0 MG/DL Aspartate Amino Transf (AST/SGOT) 33 5-34 U/L Alanine Aminotransferase (ALT/SGPT) 19 0-55 U/L Alkaline Phosphatase 125 40-136 U/L Troponin I < 0.30 <0.30 NG/ML Pro-B-Type Natriuretic Peptide 44.3 <450.0 PG/ML Total Protein 7.0 6.4-8.2 GM/DL Albumin 3.8 3.2-4.5 GM/DL Urine Color YELLOW Urine Clarity CLEAR Urine pH 5.5 5-9 Urine Specific [place] 1.020 1.016-1.022 Urine Protein NEGATIVE NEGATIVE Urine Glucose (UA) NEGATIVE NEGATIVE Urine Ketones NEGATIVE NEGATIVE Urine Nitrite NEGATIVE NEGATIVE Urine Bilirubin NEGATIVE NEGATIVE Urine Urobilinogen 0.2 < = 1.0 MG/DL Urine Leukocyte Esterase NEGATIVE NEGATIVE Urine RBC (Auto) NEGATIVE NEGATIVE Urine RBC NONE /HPF Urine WBC RARE /HPF Urine Squamous Epithelial Cells RARE /HPF Urine Crystals NONE /LPF Urine Bacteria NEGATIVE /HPF Urine Casts NONE /LPF Urine Mucus SMALL H /LPF Urine Culture Indicated NO My Orders Orders - JANIA MENDOSA MD Chest 1 View Ap/Pa Only (01/08/23 18:46) Continuous Ekg Monitoring (01/08/23 18:47) Ekg Tracing (01/08/23 18:47) Cbc With Automated Diff (01/08/23 18:47) Comprehensive Metabolic Panel (01/08/23 18:47) Lactic Acid Analyzer (01/08/23 18:47) Magnesium (01/08/23 18:47) Protime With Inr (01/08/23 18:47) Partial Thromboplastin Time (01/08/23 18:47) Ua Culture If Indicated (01/08/23 18:47) Probnp Fs (01/08/23 18:47) Troponin I Fs (01/08/23 18:47) Albuterol/Ipra Inhalation Soln (Duoneb I (01/08/23 19:00) Methylprednisolone Sod Succ (Solu-Medrol (01/08/23 18:56) Svn Small Volume Nebulizer (01/08/23 18:56) Ed Iv/Invasive Line Start (01/08/23 19:46) Ns Iv 1000 Ml (Sodium Chloride 0.9%) (01/08/23 20:00) Ns Iv 1000 Ml (Sodium Chloride 0.9%) (01/08/23 19:51) Furosemide Injection (Lasix Injection) (01/08/23 21:15) Medications Given in ED Current Medications Medications Dose Ordered Sig/Kami Route Start Time Stop Time Status Last Admin Dose Admin Albuterol/ Ipratropium 3 ml ONCE ONCE INH 01/08/23 19:00 01/08/23 19:01 DC 01/08/23 19:09 3 ML Furosemide 20 mg ONCE ONCE IVP 01/08/23 21:15 01/08/23 21:16 UNV 01/08/23 21:17 20 MG Vital Signs/I&O 01/08/23 01/08/23 18:42 19:09 Temp 36.1 Pulse 97 Resp 17 B/P (MAP) 134/94 (107) Pulse Ox 95 94 O2 Delivery Room Air Room Air Capillary Refill : Progress Note : Progress Note 1. ACS RULED OUT: - EKG: non-ischemic - Troponin undetectable 2. ACUTE COPD EXACERBATION - CXR: Cardiomegaly with mild central vascular congestion and some bibasilar atelectasis. No pleural fluid or gely consolidation. - CBC: unremarkable, normal WBC - BNP: normal - EMS gave pt ASA 324mg and a duo neb in the ambulance - Duo neb x2/ Solumedrol 125mg iv STAT - Pt's breathing issue resolved with this 3.DEHYDRATION/ JIMMY: - Elevated lactic acid: 2.62 - s. creatinine: elevated at 1.32 - NS IVF bolus STAT - Gave a small dose of Lasix, 20mg iv right before discharge to prevent fluid overload just in case. Pt's BP able to tolerate it. -Adequate hydration advised -Follow-up with PCP within the next 3 to 7 days -Advised patient to let long-term know that he has COPD since it was not on his list that was sent to the ER from [facility]. Ensure that breathing treatments are given as the patient needs at [facility]. -The patient was seen in the ED, and treated appropriately to presentation at a specific point in time. Patient is informed that there is a possibility that disease and illness can evolve and change in acuity rapidly or slowly after patient is discharged from the ER. Precautionary advice given to the patient for immediate return to ER if symptoms worsen or do not resolve, and to seek emergency care sooner rather than later. Pt also advised on the importance of PCP follow up and compliance with management and follow up plan with PCP and/or specialist, as this is part of the management plan. Pt verbally expressed understanding. Diagnostic Imaging Diagonstic Imaging: Xray Plain Films/CT/US/NM/MRI: chest Comments [facility]. [place], [place] NAME: MANUEL CALERO [facility] REC#: [id number] PT STATUS: REG ER : 1935 PHYSICIAN: JANIA MENDOSA MD ADMIT DATE: 01/08/23/ER FS Draft Date of Exam:01/08/23 CHEST 1 VIEW AP/PA ONLY Indication: Shortness of breath. Frontal chest obtained at 7:24 p.m. Heart is mildly enlarged. There is mild central vascular congestion with some bibasilar atelectasis. There is no consolidation or pneumothorax or pleural fluid. Impression: Cardiomegaly with mild central vascular congestion and some bibasilar atelectasis. No pleural fluid or gely consolidation. Dictated on workstation # [id number] Dict: 01/08/231932 Trans: 01/08/231937 [facility] [id number] Interpreted by: ANIYAH MUNSON MD Electronically signed by: Departure Impression Primary Impression: Dehydration Additional Impressions: COPD exacerbation [id number] kidney injury Qualified Codes: N17.9 - Acute kidney failure, unspecified; N18.9 - Chronic kidney disease, unspecified Disposition: 03 XF SNF Condition: Stable Departure-Patient Inst. Referrals: RORY SMITH MD (PCP) Primary Care Physician Patient Instructions: Why Water Is Important to Health, How to Use a Metered Dose Inhaler ED, How to Use a Nebulizer ED, COPD Diet, Acute kidney injury, Chronic Obstructive Pulmonary Disease (COPD) (DC) Add. Discharge Instructions: -Adequate hydration advised -Follow-up with PCP within the next 3 to 7 days -Advised patient to let long-term know that he has COPD since it was not on his list that was sent to the ER from [facility]. Ensure that breathing treatments are given as the patient needs at [facility]. JANIA MENDOSA MD Jan 08, 2023 18:46
[2023-01-08 18:52] LABS: BASOPHILS % (AUTO) 1 % (0-10); EOSINOPHILS # (AUTO) 0.4 10^3/uL (0.0-0.3); EOSINOPHILS % (AUTO) 7 % (0-10); HEMATOCRIT 41 % (40-54); HEMOGLOBIN 12.4 g/dL (13.3-17.7); LYMPHOCYTES # (AUTO) 1.5 10^3/uL (1.0-4.0); LYMPHOCYTES % (AUTO) 25 % (12-44); MEAN CORPUSCULAR HEMOGLOBIN 30 pg (25-34); MEAN CORPUSCULAR HGB CONC 31 g/dL (32-36); MEAN CORPUSCULAR VOLUME 98 fL (80-99); MEAN PLATELET VOLUME 8.6 fL (9.0-12.2); MONOCYTES # (AUTO) 0.4 10^3/uL (0.0-1.0); MONOCYTES % (AUTO) 8 % (0-12); NEUTROPHILS # (AUTO) 3.4 10^3/uL (1.8-7.8); NEUTROPHILS % (AUTO) 60 % (42-75); PLATELET COUNT 179 10^3/uL (130-400); WHITE BLOOD COUNT 5.8 10^3/uL (4.3-11.0)
[2023-01-08] MEDS ORDERED: methylPREDNISolone 125 MG (Solu-MEDROL) VIAL IV STA (18:56)
[2023-01-08] MEDS ORDERED: RT-ALBUTEROL/IPRATROPIUM 3 ML (DUONEB) VIAL INH ONE (19:00)
[2023-01-08 19:05] LABS: INR 0.9 (0.8-1.4); PROTHROMBIN TIME PATIENT 12.6 SEC (12.2-14.7)
[2023-01-08 19:12] LABS: ALANINE AMINOTRANSFERASE 19 U/L (0-55); ALBUMIN 3.8 GM/DL (3.2-4.5); ALKALINE PHOSPHATASE 125 U/L (40-136); BILIRUBIN,TOTAL 0.3 MG/DL (0.1-1.0); BUN/CREATININE RATIO 10; CALCIUM 8.9 MG/DL (8.5-10.1); CARBON DIOXIDE 23 MMOL/L (21-32); CHLORIDE 103 MMOL/L (98-107); CREATININE SERUM 1.32 MG/DL (0.60-1.30); GFR ESTIMATED 52; GLUCOSE 115 MG/DL (70-105); MAGNESIUM 2.1 MG/DL (1.6-2.4); POTASSIUM 3.6 MMOL/L (3.6-5.0); SODIUM 138 MMOL/L (135-145)
--- NOTE | 2023-01-08 19:38 | Diagnostic Imaging Report ---
Indication: Shortness of breath. Frontal chest obtained at 7:24 p.m. Heart is mildly enlarged. There is mild central vascular congestion with some bibasilar atelectasis. There is no consolidation or pneumothorax or pleural fluid. Impression: Cardiomegaly with mild central vascular congestion and some bibasilar atelectasis. No pleural fluid or gely consolidation. Dictated by: Dictated on workstation # [id number]
[2023-01-08] MEDS ORDERED: NS IV 1000 ML 1,000 ML ONE (19:51)
[2023-01-08] MEDS ORDERED: NS IV 1000 ML 1,000 ML IV SCH (20:00)
[2023-01-08 20:34] LABS: BILIRUBIN,URINE NEGATIVE (NEGATIVE); CLARITY,URINE CLEAR; COLOR,URINE YELLOW; GLUCOSE, URINE (UA) NEGATIVE (NEGATIVE); KETONES,URINE NEGATIVE (NEGATIVE); LEUKOCYTE ESTERASE ,URINE NEGATIVE (NEGATIVE); NITRITE,URINE NEGATIVE (NEGATIVE); PH,URINE 5.5 (5-9); PROTEIN,URINE NEGATIVE (NEGATIVE)
[2023-01-08 20:40] LABS: BACTERIA,URINE NEGATIVE /HPF; SQUAMOUS EPITHELIAL CELL,UR RARE /HPF; WBC,URINE RARE /HPF
[2023-01-08] MEDS ORDERED: FUROSEMIDE 40 MG/4 ML INJ (LASIX) IVP ONE (21:15)
[2023-01-08] MEDS ORDERED: FUROSEMIDE 40 MG/4 ML INJ (LASIX) ONE (21:16)
[2023-01-08 21:50] VITALS: BP 148/74
== END 2023-01-08 21:51 ==
LOC: EDUNIT# 18:38 → ER FS 18:39
DX: J44.1 Chronic obstructive pulmonary disease with (acute) exacerbation (principal); E86.0 Dehydration; I12.9 Hypertensive chronic kidney disease with stage 1 through stage 4 chronic kidney disease, or unspecified chronic kidney disease; N18.30 Chronic kidney disease, stage 3 unspecified; N17.9 Acute kidney failure, unspecified; Z87.09 Personal history of other diseases of the respiratory system
CPT/HCPCS: 36415; 51701; 71045; 80053; 81000; 83605; 83735; 83880; 84484; 85025; 85610; 85730; 93005; 93041; 94640